=== PATIENT | female | born 1960 | race African-American/Black ===

== ENCOUNTER 2020-03-28 18:33 | Inpatient (IN) | payer MEDICARE, OTHER ==
[~2020-03-28] VITALS: Ht 170.2 cm; Wt 62.2 kg
[~2020-03-28 18:33] MED LIST: ACET-2139 PO; FERR325C PO; FLUO0.2535 PO; LATA2.5D2 OP; MAGN24002 PO; OMEP20CA4 PO
[2020-03-28] MEDS ORDERED: LORAZEPAM 0.5 MG TABLET PO PRN (23:00)
[2020-03-28] MEDS ORDERED: ACETAMINOPHEN 325 MG TABLET PO PRN (23:00)
[2020-03-28] MEDS ORDERED: BLOOD SUGAR DIAGNOSTIC 1 EACH STRIP IN ONE (23:00)
[2020-03-28] MEDS ORDERED: MAGNESIUM HYDROXIDE 30 ML UDC PO PRN (23:00)
[2020-03-28] MEDS ORDERED: MAG HYDROX/AL HYDROX/SIMETH 30 ML UDC PO PRN (23:00)
[2020-03-28] MEDS ORDERED: ERYT3.5O9 EACHEYE (23:27)
[2020-03-28] MEDS ORDERED: DEXT15DR6 EACHEYE (23:27)
[2020-03-28 23:55] VITALS: BP 103/59
--- NOTE | 2020-03-29 00:03 | NUR ---
GPS RN NOTE: ADMITTING NOTE PT ARRIVED ON THE UNIT 03/28/20 @ 2200, PT CAME FROM [facility], PRIOR TO THAT PT CAME FROM [facility]. PT IS A 59 Y/O FEMALE PLACED ON A 5150 DUE TO DTS, GD, PER HOLD PT CLAIMED SHE DID NOT WANT TO SEE ANYMORE, WAS FEELING DEPRESSED AND STABBED BOTH EYES WITH A TOOTHBRUSH MULTIPLE TIMES. PT HAS MEDICAL HX OF HTN, DEMENTIA, PSYCH HX OF SCHIZOPHRENIA, DEPRESSION, ANXIETY. UPON ASSESSMENT PT IS A/O X2-3, PT UNDERSTANDS WHY SHE IS HOSPITALIZED PT STATED ITS DUE TO WHAT SHE DID TO HER EYE, WHEN ASKING PT REASON FOR DOING THAT PT STATED "I HAD TO GO TO COURT AND I DIDN'T WANT THE PEOPLE TO BEAT ME UP", PT IS FLAT, BLUNT AFFECT, PARANOID IDEATION, COOPERATIVE, DEPRESSED, ANXIOUS, DISHEVELED APPEARANCE. ABLE TO ANSWER QUESTIONS BUT REFUSED TO SIGN PAPERWORK SHE CLAIMED SHE JUST WANTED TO REST. PT DENIES ANY FAMILY PSYCH HX, ANY SUBSTANCE ABUSE HX AND PAST SUICIDE ATTEMPTS, PT DENIES SI/HI AT THIS TIME, DENIES AVH, PER REPORT PT UNDERWENT A CANTHOTOMY PROCEDURE 03/26 AT [facility] PT R. EYE WAS SWOLLEN, BLACK, RED, L. EYE ABRASION, PERRLA BRISK, PUPIL SIZE 4. PT DENIES PAIN, NO DISTRESS WAS NOTED. PT DENIES BOTH FLU AND LUCINA VACCINE SHE SAID SHE WOULD GET SICK FROM THE VACCINATION, PT ADVISED OF HOLD, PT RIGHTS HANDBOOK GIVEN TO THE PT, PT MADE AWARE OF THE UNIT. PT SIGNED THE NONDISCLOSURE AGREEMENT SAID SHE HAS NO FAMILY TO BE NOTIFIED. PT WILL BE UNDER THE CARE OF MEDICAL DR. GRIER AND [facility] CARE OF DR. NELSON. HERD TESTER DR. WATSON WAS NOTIFIED OF THE PTS ADMISSION AND ASKED FOR THE MED RECON TO BE DONE WHEN ABLE TO. ALL NEEDS MET AT THIS TIME, WILL CONTINUE TO MONITOR Q15MIN FOR SAFETY AND BEHAVIOR.
[2020-03-29] MEDS ORDERED: POLYVINYL ALCOHOL 15 ML BOTTLE OP PRN (01:30)
[2020-03-29 07:47] LABS: ALBUMIN 2.9 g/dL (3.4-5.0); BILIRUBIN,TOTAL 0.2 mg/dL (0.2-1.0); CALCIUM, SERUM 9.1 mg/dL (8.5-10.1); CREATININE 0.9 mg/dL (0.6-1.3); POTASSIUM 4.4 mmol/L (3.5-5.1); TOTAL PROTEIN, SERUM 7.9 g/dL (6.4-8.2)
[2020-03-29 07:49] LABS: CHOLESTEROL 180 mg/dL (<200); HDL CHOLESTEROL 42 mg/dL (40-60); LDL 114 mg/dL (0-99); TRIGLYCERIDES 99 mg/dL (30-150)
[2020-03-29 07:59] LABS: BASOPHILS # (AUTO) 0.1 /CMM (0.0-0.2); EOSINOPHILS % (AUTO) 7.5 % (0.0-6.0); HEMATOCRIT 42 % (33-45); HEMOGLOBIN 13.7 g/dL (11.5-14.8); LYMPHOCYTES # (AUTO) 1.9 /CMM (0.8-4.8); LYMPHOCYTES % (AUTO) 29.9 % (20.0-44.0); MEAN CORPUSCULAR HGB CONC 33 g/dl (31.0-36.0); MEAN CORPUSCULAR VOLUME 94 fL (82-100); MONOCYTES # (AUTO) 0.8 /CMM (0.1-1.30); MONOCYTES % (AUTO) 11.8 % (2.0-12.0); NEUTROPHILS # (AUTO) 3.2 /CMM (1.8-8.9); NEUTROPHILS % (AUTO) 49.8 % (43.0-81.0); PLATELET COUNT (AUTO) 381 /CMM (150-450); RED BLOOD CELL COUNT(AUTO) 4.43 MIL/uL (4.0-5.2); WHITE BLOOD COUNT (AUTO) 6.5 K/uL (4.3-11.0)
[2020-03-29 08:00] VITALS: BP 100/62
[2020-03-29] MEDS: ERYTHROMYCIN BASE OPHTH 3.5 GM TUBE EACHEYE SCH ×4 (08:33→20:54)
[2020-03-29] MEDS: PANTOPRAZOLE 40 MG TABLET.DR PO SCH (08:33)
[2020-03-29] MEDS: FERROUS SULFATE (325 MG) 325 MG/TAB TABLET PO SCH ×3 (08:33→16:19)
[2020-03-29] MEDS: MULTIVITAMINS,THERAGRAN 1 UDTAB TABLET PO SCH (08:33)
[2020-03-29] MEDS: MAGNESIUM HYDROXIDE 30 ML UDC PO SCH (08:41)
[2020-03-29] MEDS: DIVALPROEX SODIUM 250 MG TABLET.DR PO SCH ×2 (12:04→20:40)
[2020-03-29] MEDS: HALOPERIDOL 5 MG TABLET PO SCH ×2 (12:04→17:21)
--- NOTE | 2020-03-29 12:08 | NUR ---
ARLETTE INITIAL DISCHARGE PLAN: Patient currently resides at [facility] [address] [place] [address]. ARLETTE spoke with patient's supportive employment case manager from [facility] ([phone]) who stated that the patient is able to return to her board and care, however they are seeking alternate placement that provides more care should the patient require it at this time. Patient has a cavalry officer, Gordon Velasquez ([phone]). ARLETTE will continue to work with patient and MD to ensure a safe and proper discharge plan.
--- NOTE | 2020-03-29 13:13 | NUR ---
ARLETTE CASH REGISTER SERVICERMEMBER SERVICES COORDINATOR: ARLETTE spoke with patient's nurse case manager from [facility] ([phone]) who stated that the patient is able to return to her board and care, however they are seeking alternate placement that provides more care should the patient require it at this time. Remedios stated she will be in touch with this social media manager and provide updates as their plans progress. This social media manager offered assistance in seeking alternate placement however Remedios stated that the patient is part of a program called [facility] and they will be involved in the patients discharge plan. Remedios provided this social media manager with the patients tactical deception plans officer, Gordon Velasquez ([phone]). Patients sees a psychiatrist and therapist, Mazin Yeung ([phone]) at [facility] [address] [address] ([phone]).
--- NOTE | 2020-03-29 15:04 | NUR ---
ARLETTE WAGON WINDER CONTACT: ARLETTE contacted patient's appeals officer Gordon Goddard ([phone]) and left a voicemail regarding patient's hospitalization. ARLETTE stated to call this report writer back.
[2020-03-29 16:00] VITALS: BP 109/57
[2020-03-29] MEDS: BENZTROPINE MESYLATE (1 MG) 1 MG TABLET PO SCH (16:20)
[2020-03-29 18:10] LABS: BILIRUBIN,URINE NEGATIVE (NEGATIVE); BLOOD, URINE NEGATIVE Ery/uL (NEGATIVE); COLOR,URINE YELLOW (YELLOW); LEUKOCYTE ESTERASE ,URINE NEGATIVE (NEGATIVE); NITRITE, URINE NEGATIVE (NEGATIVE); PH,URINE 5.5 (5.0-8.0); PROTEIN,URINE NEGATIVE (NEGATIVE); UGLUCOSE NEGATIVE (NEGATIVE); UROBILINOGEN,URINE 0.2 EU/dL (0.2)
[2020-03-29 19:38] VITALS: BP 104/54
[2020-03-29] MEDS: LATANOPROST EYE DROP 0.005% 2.5 ML BOTTLE OP SCH (21:05)
--- NOTE | 2020-03-30 06:51 | NUR ---
GPS RN CLOSING NOTE: PT IS CURRENTLY LAYING ON BED SLEEPING. SLEPT 9HR THIS SHIFT. NO S/S OF DISTRESS. RESPIRATION EVEN AND UNLABORED WITH EQUAL RISE AND FALL OF THE CHEST ON ROOM AIR. ALL PT CARE NEEDS MET ANTICIPATED. BED IS LOCKED AND IN LOWEST POSITION. WILL CONTINUE TO MONITOR AND ENDORSE TO AM SHIFT.
[2020-03-30] MEDS: DIVALPROEX SODIUM 250 MG TABLET.DR PO SCH ×3 (07:31→20:05)
[2020-03-30] MEDS: PANTOPRAZOLE 40 MG TABLET.DR PO SCH (07:31)
[2020-03-30 08:00] VITALS: BP 109/66
[2020-03-30] MEDS: BENZTROPINE MESYLATE (1 MG) 1 MG TABLET PO SCH ×2 (08:21→16:25)
[2020-03-30] MEDS: MULTIVITAMINS,THERAGRAN 1 UDTAB TABLET PO SCH (08:21)
[2020-03-30] MEDS: FERROUS SULFATE (325 MG) 325 MG/TAB TABLET PO SCH ×3 (08:21→16:25)
[2020-03-30] MEDS: ERYTHROMYCIN BASE OPHTH 3.5 GM TUBE EACHEYE SCH ×4 (08:21→20:06)
[2020-03-30] MEDS: HALOPERIDOL 5 MG TABLET PO SCH ×2 (08:22→16:25)
[2020-03-30] MEDS: MAGNESIUM HYDROXIDE 30 ML UDC PO SCH (08:27)
--- NOTE | 2020-03-30 11:57 | NUR ---
ARLETTE OUTPATIENT PSYCH CONTACT: ARLETTE received a call from patient's outpatient psychiatrist Dr. Edith Quintanilla ([phone]) at [facility] Address: [address] [place] [address] requesting to speak with the psychiatrist at the hospital, Dr. Beauchamp. SW endorsed the request to the nurses as well as Dr. Beauchamp.
[2020-03-30 16:00] VITALS: BP 108/72
[2020-03-30] MEDS: LATANOPROST EYE DROP 0.005% 2.5 ML BOTTLE OP SCH (21:20)
[2020-03-30 22:51] VITALS: BP 104/52
[2020-03-31] MEDS: PANTOPRAZOLE 40 MG TABLET.DR PO SCH (07:54)
[2020-03-31] MEDS: BENZTROPINE MESYLATE (1 MG) 1 MG TABLET PO SCH ×2 (08:24→16:32)
[2020-03-31] MEDS: DIVALPROEX SODIUM 250 MG TABLET.DR PO SCH ×3 (08:24→20:02)
[2020-03-31] MEDS: HALOPERIDOL 5 MG TABLET PO SCH ×2 (08:24→16:31)
[2020-03-31] MEDS: MAGNESIUM HYDROXIDE 30 ML UDC PO SCH (08:24)
[2020-03-31] MEDS: FERROUS SULFATE (325 MG) 325 MG/TAB TABLET PO SCH ×3 (08:24→16:31)
[2020-03-31] MEDS: MULTIVITAMINS,THERAGRAN 1 UDTAB TABLET PO SCH (08:24)
[2020-03-31] MEDS: ERYTHROMYCIN BASE OPHTH 3.5 GM TUBE EACHEYE SCH (08:26)
[2020-03-31 08:39] VITALS: BP 101/59
--- NOTE | 2020-03-31 09:47 | NUR ---
PT ALERT CONFUSED WITHDRAWN, EYES SWOLLEN, MATTED AND ERYTHEMATOUS, EYE OINTMENT APPLIED ABX. PT MED COMPLIANT DENIES ALL REFUSES GROOMING
[2020-03-31] MEDS ORDERED: TOBRAMYCIN/DEXAMETH OPHTH DORPS 2.5 ML BOTTLE EACHEYE SCH (10:30)
[2020-03-31] MEDS ORDERED: TOBRAMYCIN/DEXAMETH OPHTH DORPS 2.5 ML BOTTLE RIGHTEYE SCH (10:30)
--- NOTE | 2020-03-31 11:00 | NUR ---
RN NOTE- WATCH GUARD GATE YESIKA TO UNIT ASSESSED PT. THIS RN CLEANED EYE W NS AND STERILE GAUZE. TELFA DRESSING APPLIED OVER RT EYE AND TAPED SECURELY. LIDIA NAPOLES ORDERED TOBRAMYCIN GTTS TO EYE. COMPLIED
[2020-03-31] MEDS: TOBRAMYCIN/DEXAMETH OPHTH DORPS 2.5 ML BOTTLE EACHEYE SCH ×3 (12:29→20:03)
[2020-03-31 16:05] VITALS: BP 101/67
[2020-03-31 20:02] VITALS: BP 101/52
[2020-03-31 21:30] VITALS: BP 109/74
[2020-03-31] MEDS: LATANOPROST EYE DROP 0.005% 2.5 ML BOTTLE OP SCH (21:36)
[2020-04-01] MEDS: TOBRAMYCIN/DEXAMETH OPHTH DORPS 2.5 ML BOTTLE EACHEYE SCH ×6 (00:11→20:13)
[2020-04-01 07:18] LABS: BASOPHILS # (AUTO) 0.1 /CMM (0.0-0.2); BASOPHILS % (AUTO) 1.7 % (0.0-2.0); EOSINOPHILS % (AUTO) 10.5 % (0.0-6.0); HEMATOCRIT 41 % (33-45); HEMOGLOBIN 13.8 g/dL (11.5-14.8); LYMPHOCYTES # (AUTO) 1.9 /CMM (0.8-4.8); LYMPHOCYTES % (AUTO) 37.1 % (20.0-44.0); MEAN CORPUSCULAR HGB CONC 33 g/dl (31.0-36.0); MEAN CORPUSCULAR VOLUME 94 fL (82-100); MONOCYTES # (AUTO) 0.6 /CMM (0.1-1.30); MONOCYTES % (AUTO) 12.3 % (2.0-12.0); NEUTROPHILS % (AUTO) 38.4 % (43.0-81.0); PLATELET COUNT (AUTO) 341 /CMM (150-450); RED BLOOD CELL COUNT(AUTO) 4.42 MIL/uL (4.0-5.2); WHITE BLOOD COUNT (AUTO) 5.3 K/uL (4.3-11.0)
--- NOTE | 2020-04-01 07:37 | NUR ---
GPS RN NOTES: PT. RESTING IN HER ROOM, PT.REMAINED STABLE THROUGHOUT SHIFT, NO S/S OF DISTRESS NOTED , ALL CARE NEEDS MET ANTICIPATED. MED COMPLIANT ,WILL CONTINUE TO MONITOR FOR SAFETY BEHAVIOR, AND ENDORSE TO AM SHIFT FOR CONTINUITY OF CARE.
[2020-04-01] MEDS: PANTOPRAZOLE 40 MG TABLET.DR PO SCH (07:49)
[2020-04-01 08:00] VITALS: BP 100/53
[2020-04-01 08:13] LABS: ALBUMIN 2.9 g/dL (3.4-5.0); BILIRUBIN,TOTAL 0.4 mg/dL (0.2-1.0); CALCIUM, SERUM 9.2 mg/dL (8.5-10.1); MAGNESIUM 2.3 mg/dL (1.8-2.4); PHOSPHORUS 3.4 mg/dL (2.5-4.9); POTASSIUM 4.9 mmol/L (3.5-5.1); TOTAL PROTEIN, SERUM 7.9 g/dL (6.4-8.2)
[2020-04-01] MEDS: FERROUS SULFATE (325 MG) 325 MG/TAB TABLET PO SCH ×3 (08:15→16:06)
[2020-04-01] MEDS: MULTIVITAMINS,THERAGRAN 1 UDTAB TABLET PO SCH (08:15)
[2020-04-01] MEDS: HALOPERIDOL 5 MG TABLET PO SCH ×2 (08:15→16:06)
[2020-04-01] MEDS: MAGNESIUM HYDROXIDE 30 ML UDC PO SCH (08:16)
[2020-04-01] MEDS: BENZTROPINE MESYLATE (1 MG) 1 MG TABLET PO SCH ×2 (08:16→16:06)
[2020-04-01] MEDS: DIVALPROEX SODIUM 250 MG TABLET.DR PO SCH ×3 (08:16→20:13)
--- NOTE | 2020-04-01 09:00 | NUR ---
RN NOTE- PT QUIET CALM WITHDRAWN ISOLATIVE FOCUS ON DC, MED COMPLIANT PO INTAKE GOOD. NO BEHAVIORAL ISSUES, EYE GTTS INSTILLED, EYES MATTED, CLEANED W NS AND GUAZE. DENIES ALL
[2020-04-01 16:00] VITALS: BP 115/50
[2020-04-01 19:57] VITALS: BP 102/53
[2020-04-01] MEDS: LATANOPROST EYE DROP 0.005% 2.5 ML BOTTLE OP SCH (21:48)
[2020-04-02] MEDS: TOBRAMYCIN/DEXAMETH OPHTH DORPS 2.5 ML BOTTLE EACHEYE SCH ×6 (00:13→20:32)
--- NOTE | 2020-04-02 06:41 | NUR ---
GPS RN CLOSING NOTE: PT LAYING ON BED SLEEPING. SLEPT 8HR THIS SHIFT. NO S/S OF DISTRESS. RESPIRATION EVEN AND UNLABORED WITH EQUAL RISE AND FALL OF THE CHEST ON ROOM AIR. ALL PT CARE NEEDS MET ANTICIPATED. BED IS LOCKED AND IN LOWEST POSITION. WILL CONTINUE TO MONITOR AND ENDORSE TO AM SHIFT.
[2020-04-02] MEDS: PANTOPRAZOLE 40 MG TABLET.DR PO SCH (07:30)
[2020-04-02 08:00] VITALS: BP 108/58
[2020-04-02] MEDS: BENZTROPINE MESYLATE (1 MG) 1 MG TABLET PO SCH ×2 (08:54→17:55)
[2020-04-02] MEDS: MULTIVITAMINS,THERAGRAN 1 UDTAB TABLET PO SCH (08:54)
[2020-04-02] MEDS: HALOPERIDOL 5 MG TABLET PO SCH ×2 (08:54→17:55)
[2020-04-02] MEDS: MAGNESIUM HYDROXIDE 30 ML UDC PO SCH (08:54)
[2020-04-02] MEDS: DIVALPROEX SODIUM 250 MG TABLET.DR PO SCH ×3 (08:54→20:31)
[2020-04-02] MEDS: FERROUS SULFATE (325 MG) 325 MG/TAB TABLET PO SCH ×3 (08:54→17:55)
[2020-04-02 20:29] VITALS: BP 91/61
--- NOTE | 2020-04-02 21:30 | NUR ---
GPS RN NOTE: PT NOTES AND MEDS WERE WRONGLY CHARTED UNDER ODIN'S ACCOUNT.
[2020-04-02] MEDS: LATANOPROST EYE DROP 0.005% 2.5 ML BOTTLE OP SCH (21:42)
[2020-04-03] MEDS: TOBRAMYCIN/DEXAMETH OPHTH DORPS 2.5 ML BOTTLE EACHEYE SCH ×7 (00:02→23:04)
--- NOTE | 2020-04-03 06:33 | NUR ---
GPS RN CLOSING NOTE: PT LAYING ON BED SLEEPING. SLEPT 9HR THIS SHIFT. WEEKLY SKIN ASSESSMENT DONE AND PICTURES PLACED IN PT. CHART. NO C/O PAIN THIS SHIFT. NO S/S OF DISTRESS. RESPIRATION EVEN AND UNLABORED WITH EQUAL RISE AND FALL OF THE CHEST ON ROOM AIR. ALL PT. CARE NEEDS MET ANTICIPATED. BED IS LOCKED AND IN LOWEST POSITION. WILL CONTINUE TO MONITOR AND ENDORSE TO AM SHIFT.
[2020-04-03] MEDS: PANTOPRAZOLE 40 MG TABLET.DR PO SCH (07:30)
[2020-04-03 08:00] VITALS: BP 98/58
--- NOTE | 2020-04-03 08:42 | NUR ---
ARLETTE OUTPATIENT PSYCH CONTACT: SW received a call from patient's outpatient psychiatrist Dr. Patricio ([phone]) at [facility] Address: [address] [place] [address] requesting updated discharge information. ARLETTE informed her that at this time there is no discharge date for pt. Per Dr. Patricio, she wishes to be notified of pts discharge and requested faxed clinicals she also stated that pts case packer is trying to work on placement for pt as pt requires a higher level of care, however, stated that if placement is not found by the time of discharge pt will return to [facility].
[2020-04-03] MEDS: DIVALPROEX SODIUM 250 MG TABLET.DR PO SCH ×2 (08:44→12:57)
[2020-04-03] MEDS: HALOPERIDOL 5 MG TABLET PO SCH ×2 (08:44→16:18)
[2020-04-03] MEDS: MAGNESIUM HYDROXIDE 30 ML UDC PO SCH (08:44)
[2020-04-03] MEDS: BENZTROPINE MESYLATE (1 MG) 1 MG TABLET PO SCH ×2 (08:44→16:18)
[2020-04-03] MEDS: FERROUS SULFATE (325 MG) 325 MG/TAB TABLET PO SCH ×3 (08:44→16:17)
[2020-04-03] MEDS: MULTIVITAMINS,THERAGRAN 1 UDTAB TABLET PO SCH (08:44)
--- NOTE | 2020-04-03 13:23 | NUR ---
ARLETTE RUG WEAVERFOOD AND BEVERAGE COORDINATOR: ARLETTE spoke with patient's case resource manager from [facility] ([phone]) to inform her per pt is refusing to take monthly injection and cannot RIESE pt as she is taking PO medication. Per Remedios, she will discuss this with the team and will provide ARLETTE with a follow up.
[2020-04-03 16:00] VITALS: BP 97/59
[2020-04-03 19:36] VITALS: BP 109/69
[2020-04-03] MEDS ORDERED: DIVALPROEX SODIUM 500 MG TABLET.DR PO SCH (21:00)
[2020-04-03] MEDS: LATANOPROST EYE DROP 0.005% 2.5 ML BOTTLE OP SCH (21:08)
[2020-04-04] MEDS: TOBRAMYCIN/DEXAMETH OPHTH DORPS 2.5 ML BOTTLE EACHEYE SCH ×5 (03:00→20:05)
--- NOTE | 2020-04-04 03:02 | NUR ---
GPS RN NOTES: PT ASLEEP PT REFUSED 0400 EYE DROP TOBRADEX DUE. PT ASLEEP AND REFUSED TO WAKE UP TO TAKE MEDS. EXPLAIN RISKS AND BENEFITS. PT STILL REFUSED X3. CONTINUE TO MONITOR.
[2020-04-04 08:00] VITALS: BP 93/59
[2020-04-04] MEDS ORDERED: DIVALPROEX SODIUM 250 MG TABLET.DR PO SCH (08:00)
[2020-04-04] MEDS: FERROUS SULFATE (325 MG) 325 MG/TAB TABLET PO SCH ×3 (08:37→16:10)
[2020-04-04] MEDS: MULTIVITAMINS,THERAGRAN 1 UDTAB TABLET PO SCH (08:37)
[2020-04-04] MEDS: BENZTROPINE MESYLATE (1 MG) 1 MG TABLET PO SCH ×2 (08:37→16:10)
[2020-04-04] MEDS: PANTOPRAZOLE 40 MG TABLET.DR PO SCH (08:37)
[2020-04-04] MEDS: HALOPERIDOL 5 MG TABLET PO SCH ×2 (08:38→16:10)
[2020-04-04] MEDS: MAGNESIUM HYDROXIDE 30 ML UDC PO SCH (09:00)
--- NOTE | 2020-04-04 09:41 | NUR ---
GPS RN NOTE: T.O. DR NELSON ORDER DEPAKOTE DR 250 MG PO BID AND 500 MG PO HS,ORDER PLACED AND CARED OUT WILL CONTINUE MONITORING
--- NOTE | 2020-04-04 10:46 | NUR ---
PC HEARING: Pts [phone] hold was upheld for grave disability.
[2020-04-04] MEDS: DIVALPROEX SODIUM 250 MG TABLET.DR PO SCH ×2 (10:54→16:10)
--- NOTE | 2020-04-04 11:22 | NUR ---
Egg TesterPassenger Barge Master: Remedios ([phone]), pts [facility] window caser, contacted the SW and she stated that she wanted an update faxed to her at [phone].
--- NOTE | 2020-04-04 11:27 | NUR ---
Wash HelperPigeon Fancier: ARLETTE faxed updated notes to [facility] with attention to Remedios to the fax number: [phone].
[2020-04-04] MEDS ORDERED: HALOPERIDOL 5 MG TABLET PO SCH (13:00)
[2020-04-04] MEDS: LORAZEPAM 0.5 MG TABLET PO SCH ×2 (14:38→16:11)
[2020-04-04 15:45] LABS: BASOPHILS % (AUTO) 0.6 % (0.0-2.0); EOSINOPHILS % (AUTO) 11.8 % (0.0-6.0); HEMATOCRIT 40 % (33-45); HEMOGLOBIN 13.1 g/dL (11.5-14.8); LYMPHOCYTES # (AUTO) 1.5 /CMM (0.8-4.8); MEAN CORPUSCULAR HGB CONC 33 g/dl (31.0-36.0); MEAN CORPUSCULAR VOLUME 94 fL (82-100); MONOCYTES # (AUTO) 0.4 /CMM (0.1-1.30); MONOCYTES % (AUTO) 9.1 % (2.0-12.0); NEUTROPHILS # (AUTO) 2.1 /CMM (1.8-8.9); NEUTROPHILS % (AUTO) 45.5 % (43.0-81.0); PLATELET COUNT (AUTO) 284 /CMM (150-450); RED BLOOD CELL COUNT(AUTO) 4.23 MIL/uL (4.0-5.2); WHITE BLOOD COUNT (AUTO) 4.6 K/uL (4.3-11.0)
[2020-04-04 16:00] VITALS: BP 98/62
[2020-04-04 16:43] LABS: CALCIUM, SERUM 8.7 mg/dL (8.5-10.1); CREATININE 0.8 mg/dL (0.6-1.3); MAGNESIUM 2.1 mg/dL (1.8-2.4); POTASSIUM 4.4 mmol/L (3.5-5.1)
[2020-04-04 20:10] VITALS: BP 93/63
[2020-04-04] MEDS: TEMAZEPAM 7.5 MG CAPSULE PO PRN (21:25)
[2020-04-04] MEDS: LATANOPROST EYE DROP 0.005% 2.5 ML BOTTLE OP SCH (21:27)
[2020-04-04] MEDS: DIVALPROEX SODIUM 500 MG TABLET.DR PO SCH (21:29)
[2020-04-05] MEDS: TOBRAMYCIN/DEXAMETH OPHTH DORPS 2.5 ML BOTTLE EACHEYE SCH ×6 (00:26→19:49)
[2020-04-05 08:00] VITALS: BP 101/58
[2020-04-05] MEDS: BENZTROPINE MESYLATE (1 MG) 1 MG TABLET PO SCH ×2 (08:22→16:01)
[2020-04-05] MEDS: DIVALPROEX SODIUM 250 MG TABLET.DR PO SCH ×2 (08:22→16:01)
[2020-04-05] MEDS: PANTOPRAZOLE 40 MG TABLET.DR PO SCH (08:22)
[2020-04-05] MEDS: MULTIVITAMINS,THERAGRAN 1 UDTAB TABLET PO SCH (08:22)
[2020-04-05] MEDS: FERROUS SULFATE (325 MG) 325 MG/TAB TABLET PO SCH ×3 (08:22→16:01)
[2020-04-05] MEDS: HALOPERIDOL 5 MG TABLET PO SCH ×3 (08:22→16:01)
[2020-04-05] MEDS: MAGNESIUM HYDROXIDE 30 ML UDC PO SCH (08:30)
[2020-04-05] MEDS: LORAZEPAM 0.5 MG TABLET PO SCH ×3 (08:30→16:00)
[2020-04-05 16:00] VITALS: BP 100/59
[2020-04-05 20:33] VITALS: BP 93/57
[2020-04-05 21:20] VITALS: BP 105/65
[2020-04-05] MEDS: DIVALPROEX SODIUM 500 MG TABLET.DR PO SCH (21:53)
[2020-04-05] MEDS: LATANOPROST EYE DROP 0.005% 2.5 ML BOTTLE OP SCH (21:53)
[2020-04-06] MEDS: TOBRAMYCIN/DEXAMETH OPHTH DORPS 2.5 ML BOTTLE EACHEYE SCH ×6 (00:13→20:23)
[2020-04-06 07:32] LABS: ALBUMIN 2.7 g/dL (3.4-5.0); BILIRUBIN,TOTAL 0.3 mg/dL (0.2-1.0); CALCIUM, SERUM 8.9 mg/dL (8.5-10.1); CREATININE 0.9 mg/dL (0.6-1.3); MAGNESIUM 2.1 mg/dL (1.8-2.4); PHOSPHORUS 3.5 mg/dL (2.5-4.9); POTASSIUM 4.5 mmol/L (3.5-5.1); TOTAL PROTEIN, SERUM 6.8 g/dL (6.4-8.2)
[2020-04-06 08:00] VITALS: BP 102/71
[2020-04-06] MEDS: MAGNESIUM HYDROXIDE 30 ML UDC PO SCH (08:12)
[2020-04-06] MEDS: PANTOPRAZOLE 40 MG TABLET.DR PO SCH (08:12)
[2020-04-06] MEDS: DIVALPROEX SODIUM 250 MG TABLET.DR PO SCH ×2 (08:12→16:46)
[2020-04-06] MEDS: BENZTROPINE MESYLATE (1 MG) 1 MG TABLET PO SCH ×2 (08:12→16:46)
[2020-04-06] MEDS: HALOPERIDOL 5 MG TABLET PO SCH ×3 (08:12→16:46)
[2020-04-06] MEDS: MULTIVITAMINS,THERAGRAN 1 UDTAB TABLET PO SCH (08:12)
[2020-04-06] MEDS: FERROUS SULFATE (325 MG) 325 MG/TAB TABLET PO SCH ×3 (08:12→16:46)
[2020-04-06] MEDS: LORAZEPAM 0.5 MG TABLET PO SCH ×3 (08:15→16:46)
[2020-04-06 15:07] LABS: *SPE A/G RATIO 0.8 (0.7-1.7); *SPE ALBUMIN 2.8 g/dL (2.9-4.4); *SPE ALPHA-1-GLOBULIN 0.2 g/dL (0.0-0.4); *SPE ALPHA-2-GLOBULIN 0.9 g/dL (0.4-1.0); *SPE BETA GLOBULIN 0.9 g/dL (0.7-1.3); *SPE GLOBULIN, TOTAL 3.6 g/dL (2.2-3.9); *SPE M-SPIKE Not Observed g/dL (Not Observed); *SPEGAMMA GLOBULIN 1.6 g/dL (0.4-1.8)
[2020-04-06 16:00] VITALS: BP_SYST 100; BP_SYST 130; BP_DIAS 63; BP_DIAS 75
[2020-04-06 20:06] VITALS: BP 96/52
[2020-04-06] MEDS: TEMAZEPAM 7.5 MG CAPSULE PO PRN (20:22)
[2020-04-06] MEDS: LATANOPROST EYE DROP 0.005% 2.5 ML BOTTLE OP SCH (22:17)
[2020-04-06] MEDS: DIVALPROEX SODIUM 500 MG TABLET.DR PO SCH (22:17)
[2020-04-07] MEDS: TOBRAMYCIN/DEXAMETH OPHTH DORPS 2.5 ML BOTTLE EACHEYE SCH ×6 (00:09→21:22)
[2020-04-07] MEDS: PANTOPRAZOLE 40 MG TABLET.DR PO SCH (07:10)
[2020-04-07 08:00] VITALS: BP 100/56
[2020-04-07] MEDS: FERROUS SULFATE (325 MG) 325 MG/TAB TABLET PO SCH ×3 (08:24→16:20)
[2020-04-07] MEDS: MULTIVITAMINS,THERAGRAN 1 UDTAB TABLET PO SCH (08:24)
[2020-04-07] MEDS: HALOPERIDOL 5 MG TABLET PO SCH (08:24)
[2020-04-07] MEDS: LORAZEPAM 0.5 MG TABLET PO SCH ×3 (08:24→16:20)
[2020-04-07] MEDS: BENZTROPINE MESYLATE (1 MG) 1 MG TABLET PO SCH ×2 (08:25→16:20)
[2020-04-07] MEDS: MAGNESIUM HYDROXIDE 30 ML UDC PO SCH (08:25)
[2020-04-07] MEDS: DIVALPROEX SODIUM 250 MG TABLET.DR PO SCH (08:25)
--- NOTE | 2020-04-07 09:00 | NUR ---
RN NOTE- PT IN BED EASILY AWAKENED MED COMPLIANT FLAT AFFECT DENIES SI HI AH VH WITHDRAWN ISOLATIVE FOLLOWS DIRECTIONS
[2020-04-07 13:13] LABS: BASOPHILS % (AUTO) 1.1 % (0.0-2.0); EOSINOPHILS % (AUTO) 10.3 % (0.0-6.0); HEMATOCRIT 42 % (33-45); HEMOGLOBIN 13.4 g/dL (11.5-14.8); LYMPHOCYTES # (AUTO) 1.4 /CMM (0.8-4.8); LYMPHOCYTES % (AUTO) 40.1 % (20.0-44.0); MEAN CORPUSCULAR HGB CONC 32 g/dl (31.0-36.0); MEAN CORPUSCULAR VOLUME 94 fL (82-100); MONOCYTES # (AUTO) 0.3 /CMM (0.1-1.30); MONOCYTES % (AUTO) 8.5 % (2.0-12.0); NEUTROPHILS # (AUTO) 1.4 /CMM (1.8-8.9); PLATELET COUNT (AUTO) 254 /CMM (150-450); RED BLOOD CELL COUNT(AUTO) 4.42 MIL/uL (4.0-5.2); WHITE BLOOD COUNT (AUTO) 3.5 K/uL (4.3-11.0)
[2020-04-07 16:00] VITALS: BP 86/50
[2020-04-07 20:15] VITALS: BP 112/82
--- NOTE | 2020-04-07 20:30 | NUR ---
RN NOTES: RECEIVED ORDERS FROM DR. NELSON TO DISCONTINUE HALDOL 10 MG PO HS NOTED AND CARRIED OUT.
[2020-04-07] MEDS ORDERED: HALOPERIDOL 5 MG TABLET PO SCH (21:00)
[2020-04-07] MEDS: DIVALPROEX SODIUM 500 MG TABLET.DR PO SCH (21:20)
[2020-04-07] MEDS: LATANOPROST EYE DROP 0.005% 2.5 ML BOTTLE OP SCH (21:49)
[2020-04-08] MEDS: TOBRAMYCIN/DEXAMETH OPHTH DORPS 2.5 ML BOTTLE EACHEYE SCH ×6 (00:07→20:08)
[2020-04-08 07:30] LABS: ALBUMIN 2.8 g/dL (3.4-5.0); BILIRUBIN,TOTAL 0.3 mg/dL (0.2-1.0); CREATININE 0.9 mg/dL (0.6-1.3); POTASSIUM 4.6 mmol/L (3.5-5.1)
[2020-04-08 08:00] VITALS: BP 103/60
[2020-04-08] MEDS: FERROUS SULFATE (325 MG) 325 MG/TAB TABLET PO SCH ×3 (08:13→16:29)
[2020-04-08] MEDS: MULTIVITAMINS,THERAGRAN 1 UDTAB TABLET PO SCH (08:13)
[2020-04-08] MEDS: DIVALPROEX SODIUM 250 MG TABLET.DR PO SCH (08:13)
[2020-04-08] MEDS: HALOPERIDOL 5 MG TABLET PO SCH ×3 (08:13→16:30)
[2020-04-08] MEDS: BENZTROPINE MESYLATE (1 MG) 1 MG TABLET PO SCH ×2 (08:13→16:29)
[2020-04-08] MEDS: PANTOPRAZOLE 40 MG TABLET.DR PO SCH (08:13)
[2020-04-08] MEDS: LORAZEPAM 0.5 MG TABLET PO SCH ×2 (08:13→12:10)
[2020-04-08] MEDS: MAGNESIUM HYDROXIDE 30 ML UDC PO SCH (08:13)
--- NOTE | 2020-04-08 09:00 | NUR ---
RN NOTE- PT OOB IN MAURER AND ROOM. A BIT LETHARGIC, LABS ORDERED. MONITORING WBC COUNT WHICH DROPPED. SPOKE W DR NELSON. COULD BE RX RELATED. CHECKING LABS, PO INTAKE GOOD MED COMPLIANT
[2020-04-08 09:30] LABS: BASOPHILS # (AUTO) 0.1 /CMM (0.0-0.2); BASOPHILS % (AUTO) 1.3 % (0.0-2.0); EOSINOPHILS % (AUTO) 12.1 % (0.0-6.0); HEMATOCRIT 42 % (33-45); HEMOGLOBIN 13.4 g/dL (11.5-14.8); LYMPHOCYTES # (AUTO) 2.2 /CMM (0.8-4.8); LYMPHOCYTES % (AUTO) 52.2 % (20.0-44.0); MEAN CORPUSCULAR HGB CONC 32 g/dl (31.0-36.0); MEAN CORPUSCULAR VOLUME 95 fL (82-100); MONOCYTES # (AUTO) 0.3 /CMM (0.1-1.30); MONOCYTES % (AUTO) 6.9 % (2.0-12.0); NEUTROPHILS # (AUTO) 1.1 /CMM (1.8-8.9); NEUTROPHILS % (AUTO) 27.5 % (43.0-81.0); PLATELET COUNT (AUTO) 221 /CMM (150-450); RED BLOOD CELL COUNT(AUTO) 4.36 MIL/uL (4.0-5.2); WHITE BLOOD COUNT (AUTO) 4.2 K/uL (4.3-11.0)
[2020-04-08 10:15] LABS: MAGNESIUM 2.4 mg/dL (1.8-2.4)
[2020-04-08 10:22] LABS: SERUM AMMONIA < 10 umol/L (11-32)
[2020-04-08] MEDS: ENSURE ENLIVE 237 ML LIQUID (VANILLA) PO SCH ×2 (11:54→16:29)
[2020-04-08 16:03] VITALS: BP 94/59
[2020-04-08 19:59] VITALS: BP 101/58
[2020-04-08] MEDS: DIVALPROEX SODIUM 500 MG TABLET.DR PO SCH (20:08)
[2020-04-08] MEDS: LATANOPROST EYE DROP 0.005% 2.5 ML BOTTLE OP SCH (21:34)
[2020-04-09] MEDS: TOBRAMYCIN/DEXAMETH OPHTH DORPS 2.5 ML BOTTLE EACHEYE SCH ×6 (01:17→19:48)
[2020-04-09 08:00] VITALS: BP 90/48
[2020-04-09 08:03] LABS: BASOPHILS % (AUTO) 0.7 % (0.0-2.0); EOSINOPHILS % (AUTO) 12.6 % (0.0-6.0); HEMATOCRIT 42 % (33-45); HEMOGLOBIN 13.8 g/dL (11.5-14.8); LYMPHOCYTES % (AUTO) 46.8 % (20.0-44.0); MEAN CORPUSCULAR HGB CONC 33 g/dl (31.0-36.0); MEAN CORPUSCULAR VOLUME 94 fL (82-100); MONOCYTES # (AUTO) 0.3 /CMM (0.1-1.30); MONOCYTES % (AUTO) 7.5 % (2.0-12.0); NEUTROPHILS # (AUTO) 1.4 /CMM (1.8-8.9); NEUTROPHILS % (AUTO) 32.4 % (43.0-81.0); PLATELET COUNT (AUTO) 202 /CMM (150-450); RED BLOOD CELL COUNT(AUTO) 4.46 MIL/uL (4.0-5.2); WHITE BLOOD COUNT (AUTO) 4.3 K/uL (4.3-11.0)
[2020-04-09] MEDS: PANTOPRAZOLE 40 MG TABLET.DR PO SCH (08:17)
[2020-04-09] MEDS: DIVALPROEX SODIUM 250 MG TABLET.DR PO SCH (08:17)
[2020-04-09] MEDS: BENZTROPINE MESYLATE (1 MG) 1 MG TABLET PO SCH ×2 (08:18→16:35)
[2020-04-09] MEDS: MULTIVITAMINS,THERAGRAN 1 UDTAB TABLET PO SCH (08:18)
[2020-04-09] MEDS: ENSURE ENLIVE 237 ML LIQUID (VANILLA) PO SCH ×2 (08:18→16:35)
[2020-04-09] MEDS: LORAZEPAM 0.5 MG TABLET PO SCH ×2 (08:18→16:35)
[2020-04-09] MEDS: HALOPERIDOL 5 MG TABLET PO SCH ×2 (08:19→16:35)
[2020-04-09] MEDS: MAGNESIUM HYDROXIDE 30 ML UDC PO SCH (08:19)
[2020-04-09] MEDS: FERROUS SULFATE (325 MG) 325 MG/TAB TABLET PO SCH ×3 (08:22→16:35)
[2020-04-09 08:56] LABS: CALCIUM, SERUM 9.1 mg/dL (8.5-10.1); CREATININE 0.8 mg/dL (0.6-1.3); POTASSIUM 4.4 mmol/L (3.5-5.1)
[2020-04-09 10:08] LABS: THYROID STIMULATING HORMONE 1.504 uIU/mL (0.358-3.74)
[2020-04-09 16:00] VITALS: BP 100/51
[2020-04-09] MEDS: DIVALPROEX SODIUM 500 MG TABLET.DR PO SCH (19:47)
[2020-04-09 20:10] VITALS: BP 90/52
[2020-04-09] MEDS: LATANOPROST EYE DROP 0.005% 2.5 ML BOTTLE OP SCH (22:10)
[2020-04-10] MEDS: TOBRAMYCIN/DEXAMETH OPHTH DORPS 2.5 ML BOTTLE EACHEYE SCH ×6 (02:05→20:00)
[2020-04-10 08:00] VITALS: BP 90/59
[2020-04-10] MEDS: PANTOPRAZOLE 40 MG TABLET.DR PO SCH (08:13)
[2020-04-10] MEDS: DIVALPROEX SODIUM 250 MG TABLET.DR PO SCH (08:13)
[2020-04-10] MEDS: MAGNESIUM HYDROXIDE 30 ML UDC PO SCH (08:31)
[2020-04-10] MEDS: FERROUS SULFATE (325 MG) 325 MG/TAB TABLET PO SCH ×3 (08:31→16:15)
[2020-04-10] MEDS: HALOPERIDOL 5 MG TABLET PO SCH ×3 (08:31→21:03)
[2020-04-10] MEDS: MULTIVITAMINS,THERAGRAN 1 UDTAB TABLET PO SCH (08:31)
[2020-04-10] MEDS: BENZTROPINE MESYLATE (1 MG) 1 MG TABLET PO SCH ×2 (08:31→16:15)
[2020-04-10] MEDS: LORAZEPAM 0.5 MG TABLET PO SCH ×2 (08:31→16:16)
[2020-04-10] MEDS: ENSURE ENLIVE 237 ML LIQUID (VANILLA) PO SCH ×2 (08:33→16:17)
[2020-04-10 11:16] LABS: BASOPHILS % (AUTO) 1.1 % (0.0-2.0); EOSINOPHILS % (AUTO) 11.6 % (0.0-6.0); HEMATOCRIT 41 % (33-45); HEMOGLOBIN 13.4 g/dL (11.5-14.8); LYMPHOCYTES # (AUTO) 1.7 /CMM (0.8-4.8); LYMPHOCYTES % (AUTO) 41.4 % (20.0-44.0); MEAN CORPUSCULAR HGB CONC 32 g/dl (31.0-36.0); MEAN CORPUSCULAR VOLUME 95 fL (82-100); MONOCYTES # (AUTO) 0.5 /CMM (0.1-1.30); MONOCYTES % (AUTO) 11.1 % (2.0-12.0); NEUTROPHILS # (AUTO) 1.4 /CMM (1.8-8.9); NEUTROPHILS % (AUTO) 34.8 % (43.0-81.0); PLATELET COUNT (AUTO) 191 /CMM (150-450); RED BLOOD CELL COUNT(AUTO) 4.35 MIL/uL (4.0-5.2); WHITE BLOOD COUNT (AUTO) 4.2 K/uL (4.3-11.0)
--- NOTE | 2020-04-10 11:29 | NUR ---
ARLETTE CITY SUPERINTENDENTBASKETBALL SCOUT: ARLETTE spoke with patient's patient case manager from [facility] ([phone]) to inform her psychiatrist is recommending SNF placement for pt. internal controls manager agreed and stated to provide her with a discharge update once available.
--- NOTE | 2020-04-10 11:45 | NUR ---
SNF REFERRAL: SW faxed SNF referral to [facility] Address: [address] [place] [address] for review.
--- NOTE | 2020-04-10 12:35 | NUR ---
SNF REFERRAL: ARLETTE faxed SNF referral to [facility] ([facility]) [address] [address] P: [phone] for review.
--- NOTE | 2020-04-10 14:08 | NUR ---
SNF CONTACT: SW received a call from Marlena, [facility] ([facility] [address] [facility] [address] P: [phone] stating pt has been admitted to the facility.
[2020-04-10 16:00] VITALS: BP_SYST 128; BP_SYST 143; BP_DIAS 67; BP_DIAS 83
[2020-04-10 20:20] VITALS: BP 107/60
[2020-04-10] MEDS: DIVALPROEX SODIUM 500 MG TABLET.DR PO SCH (21:03)
[2020-04-10] MEDS: TEMAZEPAM 7.5 MG CAPSULE PO PRN (21:04)
[2020-04-10] MEDS: LATANOPROST EYE DROP 0.005% 2.5 ML BOTTLE OP SCH (21:05)
[2020-04-11] MEDS: TOBRAMYCIN/DEXAMETH OPHTH DORPS 2.5 ML BOTTLE EACHEYE SCH ×7 (04:00→23:02)
[2020-04-11 08:00] VITALS: BP 103/66
[2020-04-11 08:14] LABS: BASOPHILS # (AUTO) 0.1 /CMM (0.0-0.2); BASOPHILS % (AUTO) 2.6 % (0.0-2.0); EOSINOPHILS % (AUTO) 12.1 % (0.0-6.0); HEMATOCRIT 40 % (33-45); HEMOGLOBIN 13.1 g/dL (11.5-14.8); LYMPHOCYTES # (AUTO) 2.2 /CMM (0.8-4.8); LYMPHOCYTES % (AUTO) 46.4 % (20.0-44.0); MEAN CORPUSCULAR HGB CONC 33 g/dl (31.0-36.0); MEAN CORPUSCULAR VOLUME 95 fL (82-100); MONOCYTES # (AUTO) 0.5 /CMM (0.1-1.30); NEUTROPHILS # (AUTO) 1.3 /CMM (1.8-8.9); NEUTROPHILS % (AUTO) 27.9 % (43.0-81.0); PLATELET COUNT (AUTO) 183 /CMM (150-450); RED BLOOD CELL COUNT(AUTO) 4.21 MIL/uL (4.0-5.2); WHITE BLOOD COUNT (AUTO) 4.7 K/uL (4.3-11.0)
[2020-04-11] MEDS: DIVALPROEX SODIUM 250 MG TABLET.DR PO SCH (08:28)
[2020-04-11] MEDS: MULTIVITAMINS,THERAGRAN 1 UDTAB TABLET PO SCH (08:28)
[2020-04-11] MEDS: MAGNESIUM HYDROXIDE 30 ML UDC PO SCH (08:28)
[2020-04-11] MEDS: PANTOPRAZOLE 40 MG TABLET.DR PO SCH (08:28)
[2020-04-11] MEDS: BENZTROPINE MESYLATE (1 MG) 1 MG TABLET PO SCH ×2 (08:28→17:26)
[2020-04-11] MEDS: HALOPERIDOL 5 MG TABLET PO SCH ×3 (08:29→21:17)
[2020-04-11] MEDS: LORAZEPAM 0.5 MG TABLET PO SCH ×2 (08:29→17:26)
[2020-04-11] MEDS: FERROUS SULFATE (325 MG) 325 MG/TAB TABLET PO SCH ×3 (08:29→17:26)
[2020-04-11] MEDS: ENSURE ENLIVE 237 ML LIQUID (VANILLA) PO SCH ×2 (08:30→17:27)
[2020-04-11 16:00] VITALS: BP 96/58
[2020-04-11] MEDS: DIVALPROEX SODIUM 500 MG TABLET.DR PO SCH (20:18)
[2020-04-11 20:36] VITALS: BP 105/64
[2020-04-11] MEDS: LATANOPROST EYE DROP 0.005% 2.5 ML BOTTLE OP SCH (21:18)
[2020-04-12] MEDS: TOBRAMYCIN/DEXAMETH OPHTH DORPS 2.5 ML BOTTLE EACHEYE SCH ×6 (04:42→23:13)
[2020-04-12] MEDS: PANTOPRAZOLE 40 MG TABLET.DR PO SCH (06:30)
[2020-04-12 08:00] VITALS: BP 100/56
[2020-04-12] MEDS: DIVALPROEX SODIUM 250 MG TABLET.DR PO SCH (08:00)
[2020-04-12] MEDS: MAGNESIUM HYDROXIDE 30 ML UDC PO SCH (09:09)
[2020-04-12] MEDS: FERROUS SULFATE (325 MG) 325 MG/TAB TABLET PO SCH ×3 (09:09→17:54)
[2020-04-12] MEDS: BENZTROPINE MESYLATE (1 MG) 1 MG TABLET PO SCH ×2 (09:09→17:54)
[2020-04-12] MEDS: MULTIVITAMINS,THERAGRAN 1 UDTAB TABLET PO SCH (09:10)
[2020-04-12] MEDS: LORAZEPAM 0.5 MG TABLET PO SCH ×2 (09:10→17:54)
[2020-04-12] MEDS: HALOPERIDOL 5 MG TABLET PO SCH ×3 (09:10→21:19)
[2020-04-12] MEDS: ENSURE ENLIVE 237 ML LIQUID (VANILLA) PO SCH ×2 (09:11→17:56)
--- NOTE | 2020-04-12 12:45 | NUR ---
SNF CONTACT: SW received a call from Marlena, spa experience coordinator at [facility] ([facility]) [address] [facility] [address] P: [phone] stating that facility cannot admit any new patients due to COVID-19 outbreak.
--- NOTE | 2020-04-12 14:43 | NUR ---
SNF Referral: ARLETTE washburned a referral to [facility] with attn to Admissions to the fax number: [phone]. Addendum: 04/13/20 at 0833 by CALLIE CHONG Pt was not accepted to facility due to reasons for psychiatric hospitalization.
[2020-04-12 16:00] VITALS: BP 104/60
--- NOTE | 2020-04-12 16:20 | NUR ---
SNF Contact: Vivian ([phone]) admissions at [facility] stated that the pt was not accepted to the facility and that she was accepted to one of her other facilities called [facility] which is too far.
--- NOTE | 2020-04-12 16:30 | NUR ---
SNF Referral: ARLETTE faxed a referral to [facility] with attn to Remedios to the fax number: [phone]. Addendum: 04/13/20 at 0945 by CALLIE CHONG ARLETTE received a call from Remedios, hygiene coordinator at [facility] stating pt was denied due to not being compatible to their resident population.
[2020-04-12] MEDS: DIVALPROEX SODIUM 500 MG TABLET.DR PO SCH (20:35)
[2020-04-12 21:08] VITALS: BP 106/49
[2020-04-12] MEDS: LATANOPROST EYE DROP 0.005% 2.5 ML BOTTLE OP SCH (21:20)
[2020-04-13] MEDS: TOBRAMYCIN/DEXAMETH OPHTH DORPS 2.5 ML BOTTLE EACHEYE SCH ×5 (03:32→20:08)
[2020-04-13] MEDS: PANTOPRAZOLE 40 MG TABLET.DR PO SCH (06:36)
[2020-04-13] MEDS: DIVALPROEX SODIUM 250 MG TABLET.DR PO SCH ×2 (07:00→08:33)
[2020-04-13 08:00] VITALS: BP 104/71
[2020-04-13] MEDS: LORAZEPAM 0.5 MG TABLET PO SCH ×2 (08:32→16:19)
[2020-04-13] MEDS: FERROUS SULFATE (325 MG) 325 MG/TAB TABLET PO SCH ×3 (08:33→16:18)
[2020-04-13] MEDS: BENZTROPINE MESYLATE (1 MG) 1 MG TABLET PO SCH ×2 (08:33→16:18)
[2020-04-13] MEDS: MULTIVITAMINS,THERAGRAN 1 UDTAB TABLET PO SCH (08:33)
[2020-04-13] MEDS: HALOPERIDOL 5 MG TABLET PO SCH ×2 (08:34→16:18)
--- NOTE | 2020-04-13 08:34 | NUR ---
ARLETTE CONSTRUCTION SITE MANAGERACCESS NURSE: ARLETTE spoke with patient's rn case manager hospice from [facility] ([phone]) to inform her of current discharge plan. ARLETTE explained that pt was suppose to discharge on this present day but due to COVID-19 the accepting facility is unable to accept. Remedios stated that she is able to assist with placement if need be. ARLETTE stated that pt was referred to another facility and is waiting to hear back from them. ARLETTE stated that she will notify her as soon as possible.
[2020-04-13] MEDS: ENSURE ENLIVE 237 ML LIQUID (VANILLA) PO SCH ×2 (08:36→17:26)
[2020-04-13] MEDS: MAGNESIUM HYDROXIDE 30 ML UDC PO SCH (08:41)
[2020-04-13 08:51] LABS: BASOPHILS % (AUTO) 0.7 % (0.0-2.0); EOSINOPHILS % (AUTO) 14.6 % (0.0-6.0); HEMATOCRIT 42 % (33-45); HEMOGLOBIN 13.6 g/dL (11.5-14.8); LYMPHOCYTES # (AUTO) 1.9 /CMM (0.8-4.8); LYMPHOCYTES % (AUTO) 50.1 % (20.0-44.0); MEAN CORPUSCULAR HGB CONC 32 g/dl (31.0-36.0); MEAN CORPUSCULAR VOLUME 95 fL (82-100); MONOCYTES # (AUTO) 0.4 /CMM (0.1-1.30); MONOCYTES % (AUTO) 10.2 % (2.0-12.0); NEUTROPHILS # (AUTO) 0.9 /CMM (1.8-8.9); NEUTROPHILS % (AUTO) 24.4 % (43.0-81.0); PLATELET COUNT (AUTO) 165 /CMM (150-450); RED BLOOD CELL COUNT(AUTO) 4.42 MIL/uL (4.0-5.2); WHITE BLOOD COUNT (AUTO) 3.8 K/uL (4.3-11.0)
--- NOTE | 2020-04-13 09:40 | NUR ---
ARLETTE WELDER PRODUCTION LINE ARCCLINICAL TRIALS DATA COORDINATOR: ARLETTE received a call form patient's telephonic nurse case manager from [facility] ([phone]) requesting MD call her to explain reasoning for SNF placement. ARLETTE also informed her that at this moment no SNF is accepting pt due to her behavior and reason for 5150 hold. Remedios stated that she will work on placement for pt and wishes for MD to call her on this present day to discuss level of care.
--- NOTE | 2020-04-13 10:08 | NUR ---
ARLETTE CUSHION INSTALLERSUPERINTENDENT CEMETERY: ARLETTE spoke with patient's case management associate from [facility] ([phone]) to inform her of pts current treatment plan. SW explained that due to pts low WBC her psychotropic medications may be overhauled and also informed her that at this time there is not discharge date for pt. ARLETTE also explained that MD has spoken about pts current WBC issues with pts outside psychiatrist and she agrees with treatment plan and discharge plan to a SNF. ARLETTE informed CM that she will notify her as needed. CM agreed.
[2020-04-13 10:21] LABS: ALBUMIN 2.9 g/dL (3.4-5.0); BILIRUBIN,TOTAL 0.3 mg/dL (0.2-1.0); POTASSIUM 4.2 mmol/L (3.5-5.1); TOTAL PROTEIN, SERUM 6.9 g/dL (6.4-8.2)
--- NOTE | 2020-04-13 15:23 | NUR ---
ARLETTE COORDINATION OF CARE: ARLETTE received a call from nurse Jojo at [facility] ([phone]) requesting updated information for pt. ARLETTE informed her of pts current treatment plan and also provided her with list of current medications. Jojo, requested an update on Supervisor Compounding And Finishing review once available.
[2020-04-13 16:00] VITALS: BP 101/70
--- NOTE | 2020-04-13 19:56 | NUR ---
GPS RN NOTE CALLED RADIOLOGY & SPOKE TO TECH & REMINDED ABOUT PATIENT'S CXR ORDERED BY MD. EMERGENCY MEDICINE STATED THAT SINCE CXR ORDER IS ROUTINE ORDER, IT WILL BE DONE TONIGHT OR TOMORROW MORNING. CHARGE NURSE MADE AWARE.
--- NOTE | 2020-04-13 20:00 | NUR ---
GPS RN NOTE PATIENT'S CURRENT VITALS ARE 101/57, 98.1, 17, 64, 97% @ RA. NO ACUTE CHANGES NOTED. WILL CONTINUE TO MONITOR FOR SAFETY, MOOD, BEHAVIOR & ANY OTHER ACUTE CHANGES.
[2020-04-13 20:01] VITALS: BP 101/57
[2020-04-13 20:36] VITALS: BP 101/51
[2020-04-13] MEDS ORDERED: clonazePAM 0.5 MG TABLET PO SCH (21:00)
[2020-04-13] MEDS: LATANOPROST EYE DROP 0.005% 2.5 ML BOTTLE OP SCH (21:47)
--- NOTE | 2020-04-13 21:58 | NUR ---
GPS RN NOTE PATIENT IS CALM, RELAXED & HAS BEEN SLEEPING, VITALS 102/59, 85, 18, 97.7, 95% AT RA. PATIENT SEEMS TO BE VERY SLEEPY & DROWSY. HELD KLONOPIN 0.5 MG SCHEDULED. WILL CONTINUE TO MONITOR FOR ANY CHANGES.
--- NOTE | 2020-04-13 22:45 | NUR ---
GPS RN NOTE DR. NELSON CALLED TO CHECK ON THE PATIENT & CHANGED ROUTINE CXR ORDER TO STAT, ALSO DR. NELSON INSTRUCTED THE RN THAT IF CXR RESULTS COMES BACK POSITIVE FOR INFECTION, MEDICAL DOCTOR NEEDS TO BE NOTIFIED & PATIENT WILL BE TRANSFERRED TO MEDICAL FLOOR FOR FURTHER INTERVENTIONS. INFORMED DR. NELSON THAT KLONOPIN WAS HELD DUE TO PT. BEING TOO SLEEPY. PATIENT IS AFEBRILE, NO ACUTE CHANGES NOTED. SNACK & JUICES WERE GIVEN TO THE PATIENT & TOLERATED WELL.
--- NOTE | 2020-04-13 23:07 | NUR ---
GPS RN NOTE DYNAMITE PACKING MACHINE OPERATOR ARRIVED & CXR DONE, WAITING FOR THE RESULTS.
--- NOTE | 2020-04-13 23:55 | NUR ---
GPS RN NOTE: CXR RESULTS PATIENT'S CXR RESULTS CAME BACK NEGATIVE, NO PNEUMOTHORAX, NO PLEURAL EFFUSION NOTED. LUNGS CLEAR PER CXR REPORT. PATIENT IS AFEBRILE AT THIS TIME. NO CHANGES NOTED. WILL CONTINUE TO MONITOR.
[2020-04-14] MEDS: TOBRAMYCIN/DEXAMETH OPHTH DORPS 2.5 ML BOTTLE EACHEYE SCH ×6 (00:06→20:16)
[2020-04-14] MEDS: PANTOPRAZOLE 40 MG TABLET.DR PO SCH (07:46)
[2020-04-14 08:03] LABS: BASOPHILS % (AUTO) 0.8 % (0.0-2.0); EOSINOPHILS % (AUTO) 13.2 % (0.0-6.0); HEMATOCRIT 41 % (33-45); HEMOGLOBIN 13.4 g/dL (11.5-14.8); LYMPHOCYTES # (AUTO) 1.7 /CMM (0.8-4.8); LYMPHOCYTES % (AUTO) 44.6 % (20.0-44.0); MEAN CORPUSCULAR HGB CONC 33 g/dl (31.0-36.0); MEAN CORPUSCULAR VOLUME 95 fL (82-100); MONOCYTES # (AUTO) 0.5 /CMM (0.1-1.30); MONOCYTES % (AUTO) 13.6 % (2.0-12.0); NEUTROPHILS % (AUTO) 27.8 % (43.0-81.0); PLATELET COUNT (AUTO) 168 /CMM (150-450); RED BLOOD CELL COUNT(AUTO) 4.36 MIL/uL (4.0-5.2); WHITE BLOOD COUNT (AUTO) 3.7 K/uL (4.3-11.0)
[2020-04-14 08:06] LABS: IMMUNOGLOBULIN A, SERUM 474 mg/dL (87-352); IMMUNOGLOBULIN G, SERUM 1530 mg/dL (586-1602); IMMUNOGLOBULIN M, SERUM 76 mg/dL (26-217)
[2020-04-14] MEDS: ENSURE ENLIVE 237 ML LIQUID (VANILLA) PO SCH ×2 (08:53→16:26)
[2020-04-14] MEDS: MAGNESIUM HYDROXIDE 30 ML UDC PO SCH (08:53)
[2020-04-14] MEDS: HALOPERIDOL 5 MG TABLET PO SCH ×2 (08:53→16:26)
[2020-04-14] MEDS: BENZTROPINE MESYLATE (1 MG) 1 MG TABLET PO SCH ×2 (08:53→16:26)
[2020-04-14] MEDS: MULTIVITAMINS,THERAGRAN 1 UDTAB TABLET PO SCH (08:53)
[2020-04-14] MEDS: FERROUS SULFATE (325 MG) 325 MG/TAB TABLET PO SCH ×3 (08:53→16:26)
[2020-04-14] MEDS: LORAZEPAM 0.5 MG TABLET PO SCH ×2 (08:53→16:26)
--- NOTE | 2020-04-14 09:00 | NUR ---
RN NOTE- PT QUIET WITHDRAWN ISOLATIVE MED COMPLIANT LABS SENT TO DR NELSON
[2020-04-14 09:11] VITALS: BP 112/72
[2020-04-14 16:16] VITALS: BP 116/62
[2020-04-14 18:06] LABS: *ANA ANTI-CENTROMERE B AB <0.2 AI (0.0-0.9); *ANA ANTI-DNA(DS) AB, QN 6 IU/mL (0-9); *ANA ANTI-JO-1 <0.2 AI (0.0-0.9); *ANA ANTICHROMATIN ANTIBODY 0.2 AI (0.0-0.9); *ANA RNP ANTIBODIES <0.2 AI (0.0-0.9); *ANA SJOGREN'S ANTI-SS-A <0.2 AI (0.0-0.9); *ANA SJOGREN'S ANTI-SS-B <0.2 AI (0.0-0.9); *ANAANTI-SCLERODERMA-70 AB <0.2 AI (0.0-0.9); *ANASMITH AB <0.2 AI (0.0-0.9)
[2020-04-14 20:00] VITALS: BP 109/56
[2020-04-14 20:07] VITALS: BP 109/56
[2020-04-14] MEDS: LATANOPROST EYE DROP 0.005% 2.5 ML BOTTLE OP SCH (21:50)
[2020-04-15] MEDS: TOBRAMYCIN/DEXAMETH OPHTH DORPS 2.5 ML BOTTLE EACHEYE SCH ×6 (00:04→20:26)
[2020-04-15 08:00] VITALS: BP 96/52
[2020-04-15] MEDS: MULTIVITAMINS,THERAGRAN 1 UDTAB TABLET PO SCH (09:26)
[2020-04-15] MEDS: ENSURE ENLIVE 237 ML LIQUID (VANILLA) PO SCH ×2 (09:26→17:48)
[2020-04-15] MEDS: PANTOPRAZOLE 40 MG TABLET.DR PO SCH (09:27)
[2020-04-15] MEDS: BENZTROPINE MESYLATE (1 MG) 1 MG TABLET PO SCH ×2 (09:27→17:57)
[2020-04-15] MEDS: HALOPERIDOL 5 MG TABLET PO SCH ×2 (09:27→17:57)
[2020-04-15] MEDS: FERROUS SULFATE (325 MG) 325 MG/TAB TABLET PO SCH ×3 (09:27→17:56)
[2020-04-15] MEDS: LORAZEPAM 0.5 MG TABLET PO SCH ×2 (09:28→17:56)
[2020-04-15] MEDS: MAGNESIUM HYDROXIDE 30 ML UDC PO SCH (09:29)
[2020-04-15 16:22] VITALS: BP 111/65
[2020-04-15 20:00] VITALS: BP 101/57
[2020-04-15 21:04] VITALS: BP 101/57
[2020-04-15] MEDS: LATANOPROST EYE DROP 0.005% 2.5 ML BOTTLE OP SCH (21:37)
[2020-04-16] MEDS: TOBRAMYCIN/DEXAMETH OPHTH DORPS 2.5 ML BOTTLE EACHEYE SCH ×6 (00:12→20:46)
[2020-04-16 07:42] LABS: BILIRUBIN,URINE NEGATIVE (NEGATIVE); BLOOD, URINE NEGATIVE Ery/uL (NEGATIVE); COLOR,URINE YELLOW (YELLOW); LEUKOCYTE ESTERASE ,URINE NEGATIVE (NEGATIVE); NITRITE, URINE NEGATIVE (NEGATIVE); PROTEIN,URINE NEGATIVE (NEGATIVE); UGLUCOSE NEGATIVE (NEGATIVE); UROBILINOGEN,URINE 0.2 EU/dL (0.2)
[2020-04-16 08:00] VITALS: BP 103/63
[2020-04-16] MEDS: MULTIVITAMINS,THERAGRAN 1 UDTAB TABLET PO SCH (08:50)
[2020-04-16] MEDS: HALOPERIDOL 5 MG TABLET PO SCH ×2 (08:51→16:28)
[2020-04-16] MEDS: FERROUS SULFATE (325 MG) 325 MG/TAB TABLET PO SCH ×3 (08:51→16:28)
[2020-04-16] MEDS: PANTOPRAZOLE 40 MG TABLET.DR PO SCH (08:51)
[2020-04-16] MEDS: BENZTROPINE MESYLATE (1 MG) 1 MG TABLET PO SCH ×2 (08:51→16:28)
[2020-04-16] MEDS: ENSURE ENLIVE 237 ML LIQUID (VANILLA) PO SCH ×2 (08:52→16:28)
[2020-04-16] MEDS: MAGNESIUM HYDROXIDE 30 ML UDC PO SCH (08:53)
[2020-04-16] MEDS: LORAZEPAM 0.5 MG TABLET PO SCH ×2 (09:05→16:28)
--- NOTE | 2020-04-16 10:27 | NUR ---
GPS RN NOTE: ATIVAN O.25 MG PO PRN WAISTED PER PHARMACIST STAFF DUE NOT ABLE TO SCAN. NEW MEDICATION PULED INSTEAD.
[2020-04-16 16:00] VITALS: BP 107/66
[2020-04-16 20:00] VITALS: BP 107/71
[2020-04-16] MEDS: LATANOPROST EYE DROP 0.005% 2.5 ML BOTTLE OP SCH (21:20)
[2020-04-17] MEDS: TOBRAMYCIN/DEXAMETH OPHTH DORPS 2.5 ML BOTTLE EACHEYE SCH ×6 (00:11→20:34)
[2020-04-17] MEDS: PANTOPRAZOLE 40 MG TABLET.DR PO SCH (07:30)
[2020-04-17 08:00] VITALS: BP 91/56
[2020-04-17] MEDS: FERROUS SULFATE (325 MG) 325 MG/TAB TABLET PO SCH ×3 (09:11→17:56)
[2020-04-17] MEDS: MULTIVITAMINS,THERAGRAN 1 UDTAB TABLET PO SCH (09:11)
[2020-04-17] MEDS: HALOPERIDOL 5 MG TABLET PO SCH ×2 (09:11→17:56)
[2020-04-17] MEDS: MAGNESIUM HYDROXIDE 30 ML UDC PO SCH (09:11)
[2020-04-17] MEDS: LORAZEPAM 0.5 MG TABLET PO SCH ×2 (09:12→17:57)
[2020-04-17] MEDS: BENZTROPINE MESYLATE (1 MG) 1 MG TABLET PO SCH ×2 (09:13→17:56)
[2020-04-17] MEDS: ENSURE ENLIVE 237 ML LIQUID (VANILLA) PO SCH ×2 (09:14→17:57)
--- NOTE | 2020-04-17 11:23 | NUR ---
ARLETTE SNF Referral: ARLETTE faxed patient's referal packet to Jojo from [facility] for review and possible placement (fax: [phone]).
--- NOTE | 2020-04-17 11:23 | NUR ---
ARLETTE SNF Referral: ARLETTE faxed patient's referral packet to Steven from [facility] for review and possible placement (fax: [phone]).
--- NOTE | 2020-04-17 12:34 | NUR ---
ARLETTE SNF Referral: ARLETTE faxed patient's referral packet to Juli from [facility] for review and possible placement (fax: [phone]). Addendum: 04/17/20 at 1256 by ROXI MAYS Patient is accepted to facility for placement.
--- NOTE | 2020-04-17 13:22 | NUR ---
PC HEARING: Pts [id number] hold was upheld for grave disability.
--- NOTE | 2020-04-17 14:56 | NUR ---
ARLETTE INDUSTRIAL CHEMISTSLEEVE BASTER: Per Dr. Beauchamp's request, ARLETTE spoke with patient's outpatient case manager from [facility] ([phone]) and requested documents they might have from the court stating patient can be medicated should patient refuse. Remedios stated she will fax this social work coordinator documents by tomorrow 9AM.
--- NOTE | 2020-04-17 14:56 | NUR ---
ARLETTE SNF Referral: Per Dr. Nito CHONG faxed patient's referral packet to Radha from [facility] for review and possible placement (fax: [phone]). Addendum: 04/17/20 at 1459 by ROXI MAYS Radha informed this group social worker that they are currently accepting COVID positive patient's only at this time.
[2020-04-17 16:00] VITALS: BP 107/65
[2020-04-17 20:36] VITALS: BP 105/56
[2020-04-17 21:30] LABS: BASOPHILS # (AUTO) 0.1 /CMM (0.0-0.2); BASOPHILS % (AUTO) 1.1 % (0.0-2.0); EOSINOPHILS % (AUTO) 8.3 % (0.0-6.0); HEMATOCRIT 42 % (33-45); HEMOGLOBIN 13.7 g/dL (11.5-14.8); LYMPHOCYTES # (AUTO) 1.7 /CMM (0.8-4.8); LYMPHOCYTES % (AUTO) 30.9 % (20.0-44.0); MEAN CORPUSCULAR HGB CONC 33 g/dl (31.0-36.0); MEAN CORPUSCULAR VOLUME 95 fL (82-100); MONOCYTES # (AUTO) 0.7 /CMM (0.1-1.30); MONOCYTES % (AUTO) 12.5 % (2.0-12.0); NEUTROPHILS # (AUTO) 2.5 /CMM (1.8-8.9); NEUTROPHILS % (AUTO) 47.2 % (43.0-81.0); PLATELET COUNT (AUTO) 177 /CMM (150-450); RED BLOOD CELL COUNT(AUTO) 4.47 MIL/uL (4.0-5.2); WHITE BLOOD COUNT (AUTO) 5.4 K/uL (4.3-11.0)
[2020-04-17 21:47] LABS: BILIRUBIN,TOTAL 0.2 mg/dL (0.2-1.0); CALCIUM, SERUM 8.9 mg/dL (8.5-10.1); POTASSIUM 4.5 mmol/L (3.5-5.1); TOTAL PROTEIN, SERUM 7.1 g/dL (6.4-8.2)
[2020-04-17] MEDS: LATANOPROST EYE DROP 0.005% 2.5 ML BOTTLE OP SCH (22:00)
[2020-04-18] MEDS: TOBRAMYCIN/DEXAMETH OPHTH DORPS 2.5 ML BOTTLE EACHEYE SCH ×4 (00:29→12:09)
[2020-04-18] MEDS: PANTOPRAZOLE 40 MG TABLET.DR PO SCH (06:32)
[2020-04-18 08:00] VITALS: BP 121/67
[2020-04-18] MEDS: MAGNESIUM HYDROXIDE 30 ML UDC PO SCH (09:00)
--- NOTE | 2020-04-18 09:00 | NUR ---
RN NOTE- PT ALERT ORIENTED TO PERSON PLACE CONFUSED DENIES ALL PO INTAKE GOOD MED COMPLIANT SAW DR NELSON . FOR DC THIS DAY
[2020-04-18] MEDS: ENSURE ENLIVE 237 ML LIQUID (VANILLA) PO SCH (09:17)
[2020-04-18] MEDS: HALOPERIDOL 5 MG TABLET PO SCH (09:17)
[2020-04-18] MEDS: FERROUS SULFATE (325 MG) 325 MG/TAB TABLET PO SCH ×2 (09:17→13:11)
[2020-04-18] MEDS: MULTIVITAMINS,THERAGRAN 1 UDTAB TABLET PO SCH (09:17)
[2020-04-18] MEDS: LORAZEPAM 0.5 MG TABLET PO SCH (09:17)
[2020-04-18] MEDS: BENZTROPINE MESYLATE (1 MG) 1 MG TABLET PO SCH (09:17)
--- NOTE | 2020-04-18 10:11 | NUR ---
ARLETTE Discharge Note: Patient will be discharged to custodial [facility] [address] [place] [facility] [place] [address] ([phone]) via ambulance transportation at 3pm today. Inserter spoke with Anusha, Manager Customer at the [facility] who confirmed patient will be accepted at facility today. Patient is alert and oriented x3-4. Patient is not able to plan for self-care at this time, however, is willing to accept care provided for her at the facility. Patient denies suicidal or homicidal ideation and is aware and agreeable with discharge plans. Patient presents with euthymic mood and congruent affect. Patient will follow-up at the facility with Psychiatrist Dr. Beauchamp and Appeals Coordinator Dr. Garcia. Pts case aide from [facility] ([phone]) is aware and agreeable with discharge plan. Addendum: 04/18/20 at 1204 by ROXI MAYS Patient will be following up with Appeals Coordinator: Dr. Mchugh at the facility.
--- NOTE | 2020-04-18 15:30 | NUR ---
HARDWOOD FINISHER NOTE- PT DC AT THIS TIME TO [facility]IA [facility] AND AMBULANCE. PT IS ALERT ORIENTED TO PERSON PLACE SOMEWHAT CONFUSED BUT CALM AND DIRECTABLE. PT DENIES SI HI AH VH. PTS VS ARE STABLE AT PRESENT. REPORT CALLED TO TORI AT FACILITY. DC PLANNING DISCUSSED W AMBULANCE STAFF AND VERBALIZED UNDERSTANDING RETURNED. PT REFUSED FLU AND PNA VACCINES, PHOTOS TAKEN OF SKIN ISSUES FOR CHART, ID [id number] REMOVED AND CLOTHING RETURNED TO PT. ESCORTED OFF UNIT BY STAFF.
== END 2020-04-18 15:30 | DRG 885 ==
LOC: GPS 21:53
PROVIDERS: ADMIT Psychiatry & Neurology Psychosomatic Medicine; ATTEND Nurse Practitioner Acute Care
DX: F25.9 Schizoaffective disorder, unspecified (principal); F41.9 Anxiety disorder, unspecified; I10 Essential (primary) hypertension; F03.90 Unspecified dementia, unspecified severity, without behavioral disturbance, psychotic disturbance, mood disturbance, and anxiety; K21.9 Gastro-esophageal reflux disease without esophagitis; Z73.6 Limitation of activities due to disability; D72.819 Decreased white blood cell count, unspecified; T43.4X5A Adverse effect of butyrophenone and thiothixene neuroleptics, initial encounter; Y92.89 Other specified places as the place of occurrence of the external cause; F32.9 Major depressive disorder, single episode, unspecified
CPT/HCPCS: 36415; 71045-TC; 80048-TC; 80053-TC; 80061-TC; 80164-TC; 81001; 82140-TC; 82784; 82962-TC; 83735-TC; 84100-TC; 84155; 84165; 84443-TC; 85025-TC; 85610-TC; 85730-TC; 86140-TC; 86225; 86235; 86334; 86431-TC; 87081-TC; 87086-TC